=== PATIENT | male | born 1960 | race Caucasian/White ===

== ENCOUNTER 2016-11-15 01:38 | Emergency (ER) | payer SELFPAY ==
--- NOTE | 2016-11-15 01:52 | ED ORDER SUMMARY ---
..... Patient: JANNET BASILIO OrderSheet [facility] VisitID: [id number] [address] [place] [address] 55y, M Registration Date/Time: 11/15/2016 ORDER SHEET Weight: 77.1 kg (stated) Allergies: No Known Drug Allergy GENERAL ORDERS: PO Fluids (Water, Juice) (:49 11/15/2016 Anca Cali) (1:53 HSoule) MEDICATION ORDERS: Nicotine Topical 21 mg (NOW) (:48 11/15/2016 Anca Cali) (Ack 1:50 HSoule) (1:53 HSoule) Motrin PO 600 mg (NOW) (:49 11/15/2016 Anca Cali) (Ack 1:50 HSoule) (1:53 HSoule) IV FLUIDS: ORDER SHEET NOTES: [Electronically signed by Ariadne Steve (02:11/15/2016)] [Electronically signed by Eugenio Sanchez Dr. (03:22 11/15/2016)] [Electronically locked/signed by Ariadne Steve (:11/15/2016)]
--- NOTE | 2016-11-15 01:52 | ED NURSING NOTES ---
Clinical Report - Nurses [address] [place] [address] 11/15/2016 1:38 Patient: JANNET BASILIO TRIAGE Triage time 01:44 Nov 15 2016. Acuity: LEVEL 3. Chief Complaint: (Clear to book). SEPSIS SCREEN: Sepsis Screen: negative. Negative (no infection suspected/documented). BASHIR COMA SCORE: Bashir Coma Scale: 15- eyes open spontaneously (4); best verbal response- oriented x 4 (5); best motor response- obeys commands (6). --01:48 Ariadne Steve 01:44 11/15/16. BP: 133/88. HR: 95. RR: 20. O2 saturation: 98% on room air. Temp: 98.8 F (oral). Pain level now: 0/10. --01:48 Ariadne Steve. Weight: 77.1 kg stated. Height/Length: 73 inches Per Patient. BMI: 22.4. --01:47 Ariadne Steve. Medications Lipitor Oral. --01:47 Ariadne Steve ASA Oral. --01:47 Ariadne Steve. Medication/allergy information source: the patient. --01:48 Ariadne Steve. Allergies No Known Drug Allergy. --01:47 Ariadne Steve. History Arrived in police custody and accompanied by police. Primary physician (none). This started just prior to arrival. ( Patient was found by police in parking lot with his car stuck on a curb, the patient reports daily alcohol use. Patient denies any pain or health issues/injuries at this time. Patient reports he gets worried he may have a stroke. FAST exam negative.). PAST MEDICAL HX: Immunizations: status is unknown. SOCIAL HX: Heavy tobacco smoker (cigarette)- 1 pack per day. Heavy alcohol use; consumes wine daily. No drug use. No infectious disease exposure. ABUSE ASSESSMENT: No report of abuse. FALL RISK ASSESSMENT: Fall risk assessment completed. No fall risk identified. NUTRITIONAL RISK ASSESSMENT: The nutritional risk assessment revealed no deficiencies. FUNCTIONAL ASSESSMENT: Functional assessment: no impairments noted. LEARNING NEEDS ASSESSMENT: The learning needs assessment revealed no barriers. SKIN INTEGRITY ASSESSMENT: Skin integrity risk assessment completed. No skin integrity risk identified. --01:48 PowerJohn PaulAriadne. PROBLEMS: CVA - Cerebrovascular Accident. Hypertension. Hypercholesterolemia. --01:47 Ariadne Steve. ADDITIONAL SURGERIES: no known surgeries. Interventions ID band on patient. To treatment room. --01:48 Ariadne Steve. PHYSICAL ASSESSMENT Ambulatory to room. GENERAL / NEURO / PSYCH: Alert. Appears in no acute distress. ( smells of alcohol). HEENT: No facial asymmetry noted. Mucous membranes are pink. RESPIRATORY: Respirations not labored. CVS: Normal sinus rhythm noted. GI / : Abdomen soft and nontender. SKIN: Skin is warm and dry. --01:49 Power Ariadne. NURSING PROGRESS NOTES lunchroom monitor, pulse oximeter and NIBP monitor placed on patient; monitor alarms on. Reassurance given to the patient. Two patient identifiers checked. Call light placed in reach. Side rails up. Bed placed in lowest position. Brakes of bed on. Patient ready for evaluation- chart flagged and ED physician notified. --01:49 Ariadne Steve 01:53 11/15/2016 NICOTINE Topical Patch/Pad 21 mg. Applied to the right upper back. Allergies verified and confirmed 5 rights. --01:53 John Paul Stevenah 01:53 11/15/2016 Motrin PO Tablets 600 mg given. Allergies verified and confirmed 5 rights. --01:53 Power Ariadne. DISPOSITION / DISCHARGE 02:16 11/15/16. Condition at departure: stable. No learning barriers present. Discharge instructions provided and reviewed with the patient (Police). Patient verbalized understanding. Written instructions provided in Uzbek. ( Contact information for [facility] given to patient to establish primary care.). The patient was discharged by the physician. He was discharged to police department facility and accompanied by a police escort. He left the Emergency Department ambulatory and via police department vehicle. Driving (Police). --02:16 Ariadne Steve 02:11 11/15/16. BP: 136/80. HR: 88. RR: 20. O2 saturation: 93% on room air. Temp: deferred. Pain level now: 0/10. --02:16 Ariadne Steve. Locked/Released at 11/15/2016 2:23 by Ariadne Steve,
--- NOTE | 2016-11-15 01:52 | ED CLINICAL REPORT ---
Clinical Report - Physicians/Mid Levels [facility] [address] [place] [address] 11/15/2016 1:38 Patient: JANNET BASILIO Arrived- By ambulance. Historian- patient. HISTORY OF PRESENT ILLNESS Chief Complaint: HEADACHE. Is still present but is improving. This started today. It was gradual in onset and has been constant but is not gone now. Patient was last known well (Earlier today). Onset during rest. It is described as similar to previous headaches. Located in the right parietal region. No neck pain. Not located in the facial region. At its maximum, severity described as moderate. When seen in the E.D., severity described as moderate. Modifying factors: relieved by nothing. Not worsened by anything. No preceding symptoms, blurred vision, photophobia, associated nausea or numbness. No weakness or vomiting. No recent travel. Similar symptoms previously: None. ( reports history of CVA. Patient reports that his headache feels different from his CVA.). Recent medical care: Not recently seen/assessed. REVIEW OF SYSTEMS No fever, chest pain, difficulty breathing, abdominal pain or skin rash. All systems otherwise negative, except as recorded above. PAST HISTORY See nurses notes. Additional Surgeries: no known surgeries. Medications: ASA Oral. Lipitor Oral. Allergies: No Known Drug Allergy. SOCIAL HISTORY Smoker- current status unknown. Alcohol use. No drug use. No recent travel. Is a local resident. ADDITIONAL NOTES The nursing notes have been reviewed. PHYSICAL EXAM Vital Signs: 11/15/2016 01:44 BP: 133/88. HR: 95. RR: 20. O2 saturation: 98%. Temp: 98.8 F. Pain level now: 0/10. Blood pressure normal. Oxygen saturation normal. Appearance: Alert. No acute distress. (Patient smells of alcohol. There wine stains on the patient's clothing.). Eyes: Pupils equal, round and reactive to light. Eyes normal inspection. (no papilledema. Normal paining retinal vasculature. Normal lids and lashes and lacrimal's. No conjunctival injection. No icterus.). (Head is nontender. No step-offs or crepitus. No signs of trauma. Normocephalic. Mild male pattern alopecia). ENT: Ears normal. Nose normal. Pharynx normal. Neck: Normal inspection. Neck supple. No meningeal signs. CVS: Normal heart rate and rhythm. Heart sounds normal. Pulses normal. Respiratory: No respiratory distress. Breath sounds normal. No rales, wheezes or rhonchi. Abdomen: Soft and nontender. No organomegaly. Back: Normal inspection. Skin: Skin warm and dry. Normal skin color. No rash. Normal skin turgor. Extremities: Extremities exhibit normal ROM. No lower extremity edema. Neuro: Oriented X 3. Alert. Mood/affect normal. Speech normal. Cranial nerves normal (as tested). No cerebellar findings. No motor deficit. No sensory deficit. Reflexes normal. PROGRESS AND PROCEDURES Course of Care: The patient is a pleasant 55-year-old male with history of alcohol abuse presenting for evaluation of headache after being picked up by police. Patient is not forthcoming with information of her reports indicate that the patient is intoxicated and had his car stuck. The patient tried to get his car out bystepping on the gas however patient is unable to do so and hadworn around the tires as a result of this. Patient reports some pain or injury at this time except for the right-sided headache. Patient reports history of CVA. No deficits noted on examination. Do not feel patient is having a CVA or having a subarachnoid hemorrhage. Symptoms are gradual in onset. Patient smells of alcohol. No signs of withdrawal at this time. Patient is otherwise polite. patient requesting nicotine patch. We'll provide patient ibuprofen for symptoms as well as by mouth hydration. Patient tolerated hydration well. Patient is appropriate and in no acute distress. Do not feel patient needs to be admitted to the hospital require further emergency department workup/evaluation. Do not feel patient is having a CVA. Do not feel patient has meningitis or other more sinister etiology for his symptoms here today. Do not feel CT scan of the head Is warranted at this time. Risks outweigh the benefits at this time. Discussed with patient workup, diagnosis, home care, follow-up, and return precautions. All questions answered. The patient expressed understanding of these instructions and was agreeable to them. The patient was discharged to police custody. Disposition: Discharged. Condition: good. CLINICAL IMPRESSION 11/15/2016 01:44 BP: 133/88. HR: 95. RR: 20. O2 saturation: 98%. Temp: 98.8 F. Pain level now: 0/10. Acute headache (right parietal). Blood pressure normal. Oxygen saturation normal. Uncomplicated alcohol intoxication with alcohol dependence (acute). INSTRUCTIONS (Patient is clear to book). Warnings: GENERAL WARNINGS: Return or contact your physician immediately if your condition worsens or changes unexpectedly, if not improving as expected, or if other problems arise. SPECIFICALLY, return if you develop fever, vomiting, numbness, weakness, difficulty thinking, visual disturbances, fainting or extreme fatigue. Your Current Medications: CONTINUE TAKING THE FOLLOWING MEDICATIONS: ASA Oral. Lipitor Oral. OTC Medications: Motrin (available over the counter): take according to label instructions. Follow-up: Return to the emergency department as needed. Follow up with your doctor. Reason for referral: as soon as you are released from long-term. Summary of care provided to patient via paper. Screening today revealed the patient's blood pressure to be in the normal range. The patient should follow up with a primary care provider for blood pressure management. Understanding of the discharge instructions verbalized by patient. Follow-up with: [facility], , , [address], , [place], [id number] Follow up. Reason for referral: Contact this clinic if you do not have a primary care doctor. Summary of care provided to patient via paper. (Electronically signed by Eugenio Sanchez Dr. 11/15/2016 3:22)
--- NOTE | 2016-11-15 01:52 | ED NURSING NOTES ---
Clinical Report - Nurses [address] [place] [address] 11/15/2016 1:38 Patient: JANNET BASILIO TRIAGE Triage time 01:44 Nov 15 2016. Acuity: LEVEL 3. Chief Complaint: (Clear to book). SEPSIS SCREEN: Sepsis Screen: negative. Negative (no infection suspected/documented). BASHIR COMA SCORE: Bashir Coma Scale: 15- eyes open spontaneously (4); best verbal response- oriented x 4 (5); best motor response- obeys commands (6). --01:48 Ariadne Steve 01:44 11/15/16. BP: 133/88. HR: 95. RR: 20. O2 saturation: 98% on room air. Temp: 98.8 F (oral). Pain level now: 0/10. --01:48 Ariadne Steve. Weight: 77.1 kg stated. Height/Length: 73 inches Per Patient. BMI: 22.4. --01:47 Ariadne Steve. Medications Lipitor Oral. --01:47 Ariadne Steve ASA Oral. --01:47 Ariadne Steve. Medication/allergy information source: the patient. --01:48 Ariadne Steve. Allergies No Known Drug Allergy. --01:47 Ariadne Steve. History Arrived in police custody and accompanied by police. Primary physician (none). This started just prior to arrival. ( Patient was found by police in parking lot with his car stuck on a curb, the patient reports daily alcohol use. Patient denies any pain or health issues/injuries at this time. Patient reports he gets worried he may have a stroke. FAST exam negative.). PAST MEDICAL HX: Immunizations: status is unknown. SOCIAL HX: Heavy tobacco smoker (cigarette)- 1 pack per day. Heavy alcohol use; consumes wine daily. No drug use. No infectious disease exposure. ABUSE ASSESSMENT: No report of abuse. FALL RISK ASSESSMENT: Fall risk assessment completed. No fall risk identified. NUTRITIONAL RISK ASSESSMENT: The nutritional risk assessment revealed no deficiencies. FUNCTIONAL ASSESSMENT: Functional assessment: no impairments noted. LEARNING NEEDS ASSESSMENT: The learning needs assessment revealed no barriers. SKIN INTEGRITY ASSESSMENT: Skin integrity risk assessment completed. No skin integrity risk identified. --01:48 PowerJohn PaulAriadne. PROBLEMS: CVA - Cerebrovascular Accident. Hypertension. Hypercholesterolemia. --01:47 Ariadne Steve. ADDITIONAL SURGERIES: no known surgeries. Interventions ID band on patient. To treatment room. --01:48 Ariadne Steve. PHYSICAL ASSESSMENT Ambulatory to room. GENERAL / NEURO / PSYCH: Alert. Appears in no acute distress. ( smells of alcohol). HEENT: No facial asymmetry noted. Mucous membranes are pink. RESPIRATORY: Respirations not labored. CVS: Normal sinus rhythm noted. GI / : Abdomen soft and nontender. SKIN: Skin is warm and dry. --01:49 Power Ariadne. NURSING PROGRESS NOTES cabin worker, pulse oximeter and NIBP monitor placed on patient; monitor alarms on. Reassurance given to the patient. Two patient identifiers checked. Call light placed in reach. Side rails up. Bed placed in lowest position. Brakes of bed on. Patient ready for evaluation- chart flagged and ED physician notified. --01:49 Ariadne Steve 01:53 11/15/2016 NICOTINE Topical Patch/Pad 21 mg. Applied to the right upper back. Allergies verified and confirmed 5 rights. --01:53 John Paul Stevenah 01:53 11/15/2016 Motrin PO Tablets 600 mg given. Allergies verified and confirmed 5 rights. --01:53 Power Ariadne. DISPOSITION / DISCHARGE 02:16 11/15/16. Condition at departure: stable. No learning barriers present. Discharge instructions provided and reviewed with the patient (Police). Patient verbalized understanding. Written instructions provided in Greek. ( Contact information for [facility] given to patient to establish primary care.). The patient was discharged by the physician. He was discharged to police department facility and accompanied by a police escort. He left the Emergency Department ambulatory and via police department vehicle. Driving (Police). --02:16 Ariadne Steve 02:11 11/15/16. BP: 136/80. HR: 88. RR: 20. O2 saturation: 93% on room air. Temp: deferred. Pain level now: 0/10. --02:16 Ariadne Steve. Locked/Released at 11/15/2016 2:23 by Ariadne Steve,
--- NOTE | 2016-11-15 01:52 | ED CLINICAL REPORT ---
Clinical Report - Physicians/Mid Levels [facility] [address] [place] [address] 11/15/2016 1:38 Patient: JANNET BASILIO Arrived- By ambulance. Historian- patient. HISTORY OF PRESENT ILLNESS Chief Complaint: HEADACHE. Is still present but is improving. This started today. It was gradual in onset and has been constant but is not gone now. Patient was last known well (Earlier today). Onset during rest. It is described as similar to previous headaches. Located in the right parietal region. No neck pain. Not located in the facial region. At its maximum, severity described as moderate. When seen in the E.D., severity described as moderate. Modifying factors: relieved by nothing. Not worsened by anything. No preceding symptoms, blurred vision, photophobia, associated nausea or numbness. No weakness or vomiting. No recent travel. Similar symptoms previously: None. ( reports history of CVA. Patient reports that his headache feels different from his CVA.). Recent medical care: Not recently seen/assessed. REVIEW OF SYSTEMS No fever, chest pain, difficulty breathing, abdominal pain or skin rash. All systems otherwise negative, except as recorded above. PAST HISTORY See nurses notes. Additional Surgeries: no known surgeries. Medications: ASA Oral. Lipitor Oral. Allergies: No Known Drug Allergy. SOCIAL HISTORY Smoker- current status unknown. Alcohol use. No drug use. No recent travel. Is a local resident. ADDITIONAL NOTES The nursing notes have been reviewed. PHYSICAL EXAM Vital Signs: 11/15/2016 01:44 BP: 133/88. HR: 95. RR: 20. O2 saturation: 98%. Temp: 98.8 F. Pain level now: 0/10. Blood pressure normal. Oxygen saturation normal. Appearance: Alert. No acute distress. (Patient smells of alcohol. There wine stains on the patient's clothing.). Eyes: Pupils equal, round and reactive to light. Eyes normal inspection. (no papilledema. Normal paining retinal vasculature. Normal lids and lashes and lacrimal's. No conjunctival injection. No icterus.). (Head is nontender. No step-offs or crepitus. No signs of trauma. Normocephalic. Mild male pattern alopecia). ENT: Ears normal. Nose normal. Pharynx normal. Neck: Normal inspection. Neck supple. No meningeal signs. CVS: Normal heart rate and rhythm. Heart sounds normal. Pulses normal. Respiratory: No respiratory distress. Breath sounds normal. No rales, wheezes or rhonchi. Abdomen: Soft and nontender. No organomegaly. Back: Normal inspection. Skin: Skin warm and dry. Normal skin color. No rash. Normal skin turgor. Extremities: Extremities exhibit normal ROM. No lower extremity edema. Neuro: Oriented X 3. Alert. Mood/affect normal. Speech normal. Cranial nerves normal (as tested). No cerebellar findings. No motor deficit. No sensory deficit. Reflexes normal. PROGRESS AND PROCEDURES Course of Care: The patient is a pleasant 55-year-old male with history of alcohol abuse presenting for evaluation of headache after being picked up by police. Patient is not forthcoming with information of her reports indicate that the patient is intoxicated and had his car stuck. The patient tried to get his car out bystepping on the gas however patient is unable to do so and hadworn around the tires as a result of this. Patient reports some pain or injury at this time except for the right-sided headache. Patient reports history of CVA. No deficits noted on examination. Do not feel patient is having a CVA or having a subarachnoid hemorrhage. Symptoms are gradual in onset. Patient smells of alcohol. No signs of withdrawal at this time. Patient is otherwise polite. patient requesting nicotine patch. We'll provide patient ibuprofen for symptoms as well as by mouth hydration. Patient tolerated hydration well. Patient is appropriate and in no acute distress. Do not feel patient needs to be admitted to the hospital require further emergency department workup/evaluation. Do not feel patient is having a CVA. Do not feel patient has meningitis or other more sinister etiology for his symptoms here today. Do not feel CT scan of the head Is warranted at this time. Risks outweigh the benefits at this time. Discussed with patient workup, diagnosis, home care, follow-up, and return precautions. All questions answered. The patient expressed understanding of these instructions and was agreeable to them. The patient was discharged to police custody. Disposition: Discharged. Condition: good. CLINICAL IMPRESSION 11/15/2016 01:44 BP: 133/88. HR: 95. RR: 20. O2 saturation: 98%. Temp: 98.8 F. Pain level now: 0/10. Acute headache (right parietal). Blood pressure normal. Oxygen saturation normal. Uncomplicated alcohol intoxication with alcohol dependence (acute). INSTRUCTIONS (Patient is clear to book). Warnings: GENERAL WARNINGS: Return or contact your physician immediately if your condition worsens or changes unexpectedly, if not improving as expected, or if other problems arise. SPECIFICALLY, return if you develop fever, vomiting, numbness, weakness, difficulty thinking, visual disturbances, fainting or extreme fatigue. Your Current Medications: CONTINUE TAKING THE FOLLOWING MEDICATIONS: ASA Oral. Lipitor Oral. OTC Medications: Motrin (available over the counter): take according to label instructions. Follow-up: Return to the emergency department as needed. Follow up with your doctor. Reason for referral: as soon as you are released from detention. Summary of care provided to patient via paper. Screening today revealed the patient's blood pressure to be in the normal range. The patient should follow up with a primary care provider for blood pressure management. Understanding of the discharge instructions verbalized by patient. Follow-up with: [facility], , , [address], , [place], [id number] Follow up. Reason for referral: Contact this clinic if you do not have a primary care doctor. Summary of care provided to patient via paper. (Electronically signed by Eugenio Sanchez Dr. 11/15/2016 3:22)
--- NOTE | 2016-11-15 01:52 | ED ORDER SUMMARY ---
..... Patient: JANNET BASILIO OrderSheet [facility] VisitID: [id number] [address] [place] [address] 55y, M Registration Date/Time: 11/15/2016 ORDER SHEET Weight: 77.1 kg (stated) Allergies: No Known Drug Allergy GENERAL ORDERS: PO Fluids (Water, Juice) (:49 11/15/2016 Anca Cali) (1:53 HSoule) MEDICATION ORDERS: Nicotine Topical 21 mg (NOW) (:48 11/15/2016 Anca Cali) (Ack 1:50 HSoule) (1:53 HSoule) Motrin PO 600 mg (NOW) (:49 11/15/2016 Anca Cali) (Ack 1:50 HSoule) (1:53 HSoule) IV FLUIDS: ORDER SHEET NOTES: [Electronically signed by Ariadne Steve (02:11/15/2016)] [Electronically signed by Eugenio Sanchez Dr. (03:22 11/15/2016)] [Electronically locked/signed by Ariadne Steve (:11/15/2016)]
--- NOTE | 2016-11-15 03:23 | ED MAR SUMMARY ---
..... Medication Administration Record [facility] [address] [place] [address] Patient: JANNET BASILIO Visit ID: [id number] 55y, M Weight: 77.1 kg Height/Length: 73 in BMI: 22.4 ALLERGIES: No Known Drug Allergy Given 11/15/2016 Ariadne Steve, Medication Administered: NICOTINE [TOPICAL], Dose: 21 mg Patch/Pad Topical. Medication Ordered: Nicotine Topical 21 mg (NOW). Given :11/15/2016 Ariadne Steve, Medication Administered: MOTRIN [PO], Dose: 600 mg Tablets PO. Medication Ordered: Motrin PO 600 mg (NOW).
--- NOTE | 2016-11-15 03:23 | ED MED RECONCILIATION SUMMARY ---
Patient: JANNET BASILIO Medication Reconciliation Report [facility] VisitID: [id number] [address] [place] [address] 55y, M Registration Date/Time: 11/15/2016 Weight: 77.1 kg Height/Length: 73 in. BMI: 22.4 ALLERGIES: No Known Drug Allergy The patient's Home Medications are listed below: CONTINUE TAKING THE FOLLOWING MEDICATIONS: ASA Oral Lipitor Oral The source(s) of the original Home Medication information: patient The following Medications were given to the patient in the Emergency Department: NICOTINE [TOPICAL] Topical 21 mg, administered: 11/15/2016 1:53:00 AM Motrin [PO] PO 600 mg, administered: 11/15/2016 1:53:00 AM The following Medications were prescribed to the patient: Motrin (available over the counter): take according to label instructions. -- Eugenio Sanchez Dr.
--- NOTE | 2016-11-15 03:23 | ED MAR SUMMARY ---
..... Medication Administration Record [facility] [address] [place] [address] Patient: JANNET BASILIO Visit ID: [id number] 55y, M Weight: 77.1 kg Height/Length: 73 in BMI: 22.4 ALLERGIES: No Known Drug Allergy Given 11/15/2016 Ariadne Steve, Medication Administered: NICOTINE [TOPICAL], Dose: 21 mg Patch/Pad Topical. Medication Ordered: Nicotine Topical 21 mg (NOW). Given :11/15/2016 Ariadne Steve, Medication Administered: MOTRIN [PO], Dose: 600 mg Tablets PO. Medication Ordered: Motrin PO 600 mg (NOW).
--- NOTE | 2016-11-15 03:23 | ED DISCHARGE INSTRUCTIONS ---
Patient: JANNET BASILIO General Instructions [facility] VisitID: [id number] [address] [place] [address] 55y, M Registration Date/Time: 11/15/2016 11/15/2016 01:44 BP: 133/88. HR: 95. RR: 20. O2 saturation: 98%. Temp: 98.8 F. Pain level now: 0/10. Acute headache (right parietal). Blood pressure normal. Oxygen saturation normal. Uncomplicated alcohol intoxication with alcohol dependence (acute). INSTRUCTIONS (Patient is clear to book). Warnings: GENERAL WARNINGS: Return or contact your physician immediately if your condition worsens or changes unexpectedly, if not improving as expected, or if other problems arise. SPECIFICALLY, return if you develop fever, vomiting, numbness, weakness, difficulty thinking, visual disturbances, fainting or extreme fatigue. Your Current Medications: CONTINUE TAKING THE FOLLOWING MEDICATIONS: ASA Oral. Lipitor Oral. OTC Medications: Motrin (available over the counter): take according to label instructions. Follow-up: Return to the emergency department as needed. Follow up with your doctor. Reason for referral: as soon as you are released from detention. Summary of care provided to patient via paper. Screening today revealed the patient's blood pressure to be in the normal range. The patient should follow up with a primary care provider for blood pressure management. Understanding of the discharge instructions verbalized by patient. Follow-up with: [facility], , , [address], [place], [id number] Follow up. Reason for referral: Contact this clinic if you do not have a primary care doctor. Summary of care provided to patient via paper. ADDITIONAL INFORMATION Alcohol Intoxication Alcohol intoxication occurs when you drink alcohol faster than your liver can remove it from your system. Alcohol intoxication affects your judgment and coordination. Very high blood alcohol levels can cause coma, very slow breathing and even . If you drink alcohol every day, this may gradually cause permanent damage to your liver, brain, heart, pancreas and other organs. Alcohol use during may cause permanent damage to the growing baby. Home Care: Do not drink any more alcohol. DO NOT DRIVE until all effects of the alcohol have worn off. Get lots of rest over the next few days. Drink plenty of water and other non-alcoholic liquids. Try to eat regular meals. If you have been drinking heavily on a daily basis, you may go through alcohol withdrawl. This is also called the shakes or DTs. The usual symptoms last 3 to 4 days and may include nervousness, shakiness, nausea, sweating or sleeplessness. During this time, it is best that you stay with family or friends who can help and support you. You can also admit yourself to a residential detox program. If your symptoms are severe, contact your doctor for medicines to help. Follow Up: If alcohol is causing a problem in your life, these and other organizations can help you: Alcoholics Anonymous offers support through a self-help fellowship. There are no dues or fees. See the Yellow Pages and call for time and place of meetings. www.aa.org [employer] offers support to families of alcohol users. 619.505.9040 www.al-anon.org National [place] On Alcoholism And Drug Dependence 045-652-1930 www.ncadd.org There are also inpatient or residential alcohol detox programs. Check the Internet or phonebook Yellow Pages under Drug Abuse & Treatment Centers. Get Prompt Medical Attention if any of the following occur: there) Headache [Unspecified] The cause of your headache today is not clear, but it does not appear to be the sign of any serious illness. Under stress, some people tense the muscles of their shoulder, neck and scalp without knowing it. If this condition lasts long enough, a TENSION HEADACHE can occur. A MIGRAINE HEADACHE is caused by changes in blood flow to the brain. A migraine attack may be triggered by emotional stress, hormone changes during the menstrual cycle, oral contraceptives, alcohol use, certain foods containing tyramine, eye strain, weather changes, missing meals, lack of sleep or oversleeping. Other causes of headache include a viral illness with high fever, head injury with concussion, sinus, ear or throat infection, dental pain and TMJ (jaw joint) pain. More serious but less common causes of headache include stroke, brain hemorrhage, brain tumor, meningitis and encephalitis. Home Care: If you were given pain medicine for this headache, do not drive yourself home. Arrange for a ride, instead. When you get home, try to sleep. You should feel much better when you wake up. Apply heat to the back of your neck to relieve neck muscle spasm. Migraine headaches may respond best to an ice pack on the forehead or at the base of the skull. If you are having nausea or vomiting, follow a light diet until your headache is relieved. If you have a migraine type headache, use sunglasses when in the daylight or around bright indoor lighting until symptoms improve. Bright glaring light can worsen this kind of headache. Follow Up with your doctor if the headache is not better within the next 24 hours. If you have frequent headaches you should discuss a treatment plan with your primary care doctor. By being aware of the earliest signs of headache, and starting treatment right away, you may be able to stop the pain yourself. Get Prompt Medical Attention if any of the following occur: Worsening of your head pain or no improvement within 24 hours Repeated vomiting (unable to keep liquids down) Fever of 100.4F (38C) or higher, or as directed by your healthcare provider Stiff neck Extreme drowsiness, confusion or fainting Dizziness, vertigo (dizziness with spinning sensation) Weakness of an arm or leg or one side of the face Difficulty with speech or vision You have been given the following additional information: Alcohol Intoxication Headache, Unspecified (Electronically signed by Eugenio Sanchez Dr. 11/15/2016 3:22)
--- NOTE | 2016-11-15 03:23 | ED MED RECONCILIATION SUMMARY ---
Patient: JANNET BASILIO Medication Reconciliation Report [facility] VisitID: [id number] [address] [place] [address] 55y, M Registration Date/Time: 11/15/2016 Weight: 77.1 kg Height/Length: 73 in. BMI: 22.4 ALLERGIES: No Known Drug Allergy The patient's Home Medications are listed below: CONTINUE TAKING THE FOLLOWING MEDICATIONS: ASA Oral Lipitor Oral The source(s) of the original Home Medication information: patient The following Medications were given to the patient in the Emergency Department: NICOTINE [TOPICAL] Topical 21 mg, administered: 11/15/2016 1:53:00 AM Motrin [PO] PO 600 mg, administered: 11/15/2016 1:53:00 AM The following Medications were prescribed to the patient: Motrin (available over the counter): take according to label instructions. -- Eugenio Sanchez Dr.
--- NOTE | 2016-11-15 03:23 | ED DISCHARGE INSTRUCTIONS ---
Patient: JANNET BASILIO General Instructions [facility] VisitID: [id number] [address] [place] [address] 55y, M Registration Date/Time: 11/15/2016 11/15/2016 01:44 BP: 133/88. HR: 95. RR: 20. O2 saturation: 98%. Temp: 98.8 F. Pain level now: 0/10. Acute headache (right parietal). Blood pressure normal. Oxygen saturation normal. Uncomplicated alcohol intoxication with alcohol dependence (acute). INSTRUCTIONS (Patient is clear to book). Warnings: GENERAL WARNINGS: Return or contact your physician immediately if your condition worsens or changes unexpectedly, if not improving as expected, or if other problems arise. SPECIFICALLY, return if you develop fever, vomiting, numbness, weakness, difficulty thinking, visual disturbances, fainting or extreme fatigue. Your Current Medications: CONTINUE TAKING THE FOLLOWING MEDICATIONS: ASA Oral. Lipitor Oral. OTC Medications: Motrin (available over the counter): take according to label instructions. Follow-up: Return to the emergency department as needed. Follow up with your doctor. Reason for referral: as soon as you are released from [facility]. Summary of care provided to patient via paper. Screening today revealed the patient's blood pressure to be in the normal range. The patient should follow up with a primary care provider for blood pressure management. Understanding of the discharge instructions verbalized by patient. Follow-up with: [facility], , , [address], [place], [id number] Follow up. Reason for referral: Contact this clinic if you do not have a primary care doctor. Summary of care provided to patient via paper. ADDITIONAL INFORMATION Alcohol Intoxication Alcohol intoxication occurs when you drink alcohol faster than your liver can remove it from your system. Alcohol intoxication affects your judgment and coordination. Very high blood alcohol levels can cause coma, very slow breathing and even . If you drink alcohol every day, this may gradually cause permanent damage to your liver, brain, heart, pancreas and other organs. Alcohol use during may cause permanent damage to the growing baby. Home Care: Do not drink any more alcohol. DO NOT DRIVE until all effects of the alcohol have worn off. Get lots of rest over the next few days. Drink plenty of water and other non-alcoholic liquids. Try to eat regular meals. If you have been drinking heavily on a daily basis, you may go through alcohol withdrawl. This is also called the shakes or DTs. The usual symptoms last 3 to 4 days and may include nervousness, shakiness, nausea, sweating or sleeplessness. During this time, it is best that you stay with family or friends who can help and support you. You can also admit yourself to a residential detox program. If your symptoms are severe, contact your doctor for medicines to help. Follow Up: If alcohol is causing a problem in your life, these and other organizations can help you: Alcoholics Anonymous offers support through a self-help fellowship. There are no dues or fees. See the Yellow Pages and call for time and place of meetings. www.aa.org [employer] offers support to families of alcohol users. 680.879.8312 www.al-anon.org National [place] On Alcoholism And Drug Dependence 836-481-2160 www.ncadd.org There are also inpatient or residential alcohol detox programs. Check the Internet or phonebook Yellow Pages under Drug Abuse & Treatment Centers. Get Prompt Medical Attention if any of the following occur: there) Headache [Unspecified] The cause of your headache today is not clear, but it does not appear to be the sign of any serious illness. Under stress, some people tense the muscles of their shoulder, neck and scalp without knowing it. If this condition lasts long enough, a TENSION HEADACHE can occur. A MIGRAINE HEADACHE is caused by changes in blood flow to the brain. A migraine attack may be triggered by emotional stress, hormone changes during the menstrual cycle, oral contraceptives, alcohol use, certain foods containing tyramine, eye strain, weather changes, missing meals, lack of sleep or oversleeping. Other causes of headache include a viral illness with high fever, head injury with concussion, sinus, ear or throat infection, dental pain and TMJ (jaw joint) pain. More serious but less common causes of headache include stroke, brain hemorrhage, brain tumor, meningitis and encephalitis. Home Care: If you were given pain medicine for this headache, do not drive yourself home. Arrange for a ride, instead. When you get home, try to sleep. You should feel much better when you wake up. Apply heat to the back of your neck to relieve neck muscle spasm. Migraine headaches may respond best to an ice pack on the forehead or at the base of the skull. If you are having nausea or vomiting, follow a light diet until your headache is relieved. If you have a migraine type headache, use sunglasses when in the daylight or around bright indoor lighting until symptoms improve. Bright glaring light can worsen this kind of headache. Follow Up with your doctor if the headache is not better within the next 24 hours. If you have frequent headaches you should discuss a treatment plan with your primary care doctor. By being aware of the earliest signs of headache, and starting treatment right away, you may be able to stop the pain yourself. Get Prompt Medical Attention if any of the following occur: Worsening of your head pain or no improvement within 24 hours Repeated vomiting (unable to keep liquids down) Fever of 100.4F (38C) or higher, or as directed by your healthcare provider Stiff neck Extreme drowsiness, confusion or fainting Dizziness, vertigo (dizziness with spinning sensation) Weakness of an arm or leg or one side of the face Difficulty with speech or vision You have been given the following additional information: Alcohol Intoxication Headache, Unspecified (Electronically signed by Eugenio Sanchez Dr. 11/15/2016 3:22)
== END 2016-11-15 02:10 | disposition home or self-care (01) ==
LOC: ED SRH 01:38
DX: R51 Headache (principal); F10.220 Alcohol dependence with intoxication, uncomplicated; F17.210 Nicotine dependence, cigarettes, uncomplicated; I10 Essential (primary) hypertension; Z79.82 Long term (current) use of aspirin; Z79.899 Other long term (current) drug therapy